=== PATIENT | male | born 1955 | race Caucasian/White ===

== ENCOUNTER 2018-05-11 16:38 | Emergency (ER) | payer OTHER ==
[2018-05-11] MEDS ORDERED: Naproxen 500 MG TAB ONE (17:44)
[2018-05-11] MEDS ORDERED: HYDROcodone/Acetaminophen 10/325 mg Tablet ONE (17:44)
[2018-05-11] MEDS ORDERED: Diazepam 5 MG TAB ONE (17:44)
--- NOTE | 2018-05-11 18:15 | CT ---
HEAD CT WITHOUT CONTRAST: 05/11/18 COMPARISON: None. HISTORY: Trauma, pain. TECHNIQUE: Serial axial CT imaging at 5 mm intervals from vertex through skull base without contrast with coron al and sagittal reformatted imaging. FINDINGS: The imaged paranasal sinuses/mastoid air cells are well aerated. There is no displaced calvarial frac ture, intracranial hemorrhage, midline shift, or mass effect. IMPRESSION: No acute findings. POS: [facility]
--- NOTE | 2018-05-11 18:24 | CT ---
CERVICAL SPINE CT WITHOUT CONTRAST: 05/11/18 COMPARISON: None. HISTORY: Trauma, pain. TECHNIQUE: Serial axial CT imaging at 2.5 mm intervals through the cervical spine without contrast. Coronal and sagittal reformatted imaging obtained. FINDINGS: There is moderate degenerative change at the atlantoaxial interspace. The imaged paranasal sinuses an d mastoid air cells are well aerated. The C1 ring is intact. The craniocervical junction and the cerv icothoracic junction are intact. No anterolisthesis or retrolisthesis. No prevertebral soft tissue sw elling. The imaged lung apices demonstrate no acute findings. There is disc space narrowing and degenerative end plate change at C5-6 and C6-7. No acute fracture o r evidence of dislocation noted. Subcentimeter bilateral hypodense thyroid nodules are noted. IMPRESSION: No acute fracture or evidence of dislocation. POS: [facility]
== END 2018-05-11 18:40 | disposition home or self-care (01) ==
LOC: MADERS 16:38
DX: S06.0X9A Concussion with loss of consciousness of unspecified duration, initial encounter (principal); V89.2XXA Person injured in unspecified motor-vehicle accident, traffic, initial encounter
CPT/HCPCS: 70450; 72125